=== PATIENT | male | born 1935 | race Caucasian/White ===

== ENCOUNTER → 2018-02-19 | Outpatient (CLI) | payer MEDICARE ==
[~2018-02-19] MED LIST: AEC81 PO; ATOR10TA69 PO; CIPR-245 PO; FELO5TAB31 PO; FOLI1TAB15 PO; IBUP-2077 PO; LOSA25TA21 PO; METH2.5T6 PO; METO-408 PO; METR500T PO; OMEP20CA10 PO
== END | disposition home or self-care (01) ==
LOC: SHCH 14:46
PROVIDERS: ATTEND Internal Medicine Cardiovascular Disease
DX: I50.9 Heart failure, unspecified (principal); I25.10 Atherosclerotic heart disease of native coronary artery without angina pectoris; E78.5 Hyperlipidemia, unspecified
CPT/HCPCS: 93306